=== PATIENT | female | born 1960 | race Two or more races ===

== ENCOUNTER → 2018-05-08 | Outpatient (CLI) | payer OTHER | LOC: FIMAGING 09:54 | PROVIDERS: ATTEND Physical Medicine & Rehabilitation | DX: M23.221 Derangement of posterior horn of medial meniscus due to old tear or injury, right knee (principal); M24.10 Other articular cartilage disorders, unspecified site; M71.21 Synovial cyst of popliteal space [Baker], right knee; M23.41 Loose body in knee, right knee ==

== ENCOUNTER → 2018-11-02 | Outpatient (CLI) | payer OTHER | LOC: FIMAGING 15:07 | PROVIDERS: ATTEND Internal Medicine | DX: R06.02 Shortness of breath (principal) ==

== ENCOUNTER → 2018-11-05 | Outpatient (CLI) | payer OTHER | LOC: FIMAGING 13:50 ==

== ENCOUNTER → 2018-11-08 | Outpatient (CLI) | payer OTHER | LOC: FIMAGING 13:30 | PROVIDERS: ATTEND Internal Medicine | DX: R60.0 Localized edema (principal); R79.89 Other specified abnormal findings of blood chemistry; Z98.890 Other specified postprocedural states ==

== ENCOUNTER → 2019-01-11 | Outpatient (CLI) | payer OTHER ==
[~2019-01-11] MED LIST: IOPAMIDOL (ISOVUE-300) 100 ML BTL ONE
== END ==
LOC: FIMAGING 13:01
PROVIDERS: ATTEND Internal Medicine Gastroenterology
DX: K83.8 Other specified diseases of biliary tract (principal); R93.2 Abnormal findings on diagnostic imaging of liver and biliary tract
CPT/HCPCS: Q9967

== ENCOUNTER 2019-01-17 10:10 | Day surgery (SDC) | payer OTHER ==
[2019-01-17] MEDS ORDERED: LR 1,000 ML IV ONE (10:59)
[2019-01-17] MEDS ORDERED: IOTHALAMATE MEG (CONRAY) 50 ML VIAL IV ONE (11:57)
[2019-01-17] MEDS ORDERED: MIDAZOLAM 2 MG/2 ML VIAL IVP ONE (12:03)
--- NOTE | 2019-01-17 12:04 | PDANEPAE ---
ANE Past Medical History - Cardiovascular History Hx Hypertension: Yes Hx Arrhythmias: No Hx Chest Pain: No Hx Coronary Artery / Peripheral Vascular Disease: No Hx CHF / Valvular Disease: No Hx Palpitations: No - Pulmonary History Hx COPD: No Hx Asthma/Reactive Airway Disease: No Hx Recent Upper Respiratory Infection: No Hx Oxygen in Use at Home: No Hx Sleep Apnea: No Sleep Apnea Screening Result - Last Documented: Negative - Neurologic History Hx Cerebrovascular Accident: No Hx Seizures: Yes Hx Dementia: No Neurologic History Comment: seizure at age 14 nothing since - Endocrine History Hx Diabetes: No - Renal History Hx Renal Disorders: No - Liver History Hx Hepatic Disorders: No - Neurological & Psychiatric Hx Hx Neurological and Psychiatric Disorders: Yes Neurological / Psychiatric History Comment: cervical and lumbar herniated disc. anxiety - Cancer History Hx Cancer: No - Congenital Disorder History Hx Congenital Disorders: No - GI History Hx Gastrointestinal Disorders: Yes Gastrointestinal History Comment: acid reflux - Other Health History Other Health History: dental implants permenant retainers - Chronic Pain History Chronic Pain: Yes (neck,back) - Surgical History Prior Surgeries: RTKA 10/26. HYSTERECTOMY 11 YRS AGO ANE Review of Systems Review of Systems: - Exercise capacity METS (RN): 4 METS ANE Patient History - Allergies Allergies/Adverse Reactions: prednisone Allergy (Verified 01/14/19 19:01) Other-Enter Comments - Home Medications Home Medications: Acetaminophen 01/14/19 [Last Taken 1 Day Ago ~01/16/19] Gabapentin 01/14/19 [Last Taken 1 Day Ago ~01/16/19] Irbesartan 01/14/19 [Last Taken 01/17/19] Oxycodone HCl 01/14/19 [Last Taken 01/17/19] Triamterene-Hctz 37.5-25 mg Tb 01/14/19 [Last Taken 1 Day Ago ~01/16/19] Valium 01/14/19 [Last Taken 01/17/19] Xanax 01/14/19 [Last Taken 01/17/19 10:30] Zantac 01/14/19 [Last Taken 01/17/19] - NPO status NPO Since - Liquids (Date): 01/17/19 NPO Since - Liquids (Time): 06:30 NPO Since - Solids (Date): 01/16/19 NPO Since - Solids (Time): 21:00 - Smoking Hx Smoking Status: Former smoker - Family Anes Hx Family Hx Anesthesia Complications: none ANE Labs/Vital Signs - Labs Result Diagrams: 01/17/19 11:20 - Vital Signs Blood Pressure: 135/80 Heart Rate: 88 Respiratory Rate: 18 O2 Sat (%): 95 Height: 154.94 cm Weight: 53.977 kg ANE Physical Exam - Airway Neck exam: FROM Mallampati Score: Class 2 Mouth exam: normal dental/mouth exam - Pulmonary Pulmonary: no respiratory distress - Cardiovascular Cardiovascular: regular rate and rhythym - ASA Status ASA Status: II ANE Anesthesia Plan Anesthesia Plan: general endotracheal anesthesia
[2019-01-17] MEDS ORDERED: fentaNYL 100 MCG/2 ML INJ ONE (12:08)
[2019-01-17] MEDS ORDERED: ROCURONIUM 50 MG/5 ML VIAL ONE (12:08)
[2019-01-17] MEDS ORDERED: PROPOFOL 200 MG/20 ML VIAL ONE (12:08)
[2019-01-17] MEDS ORDERED: ONDANSETRON 4 MG/2 ML VIAL ONE (12:09)
[2019-01-17] MEDS ORDERED: LIDOCAINE 2% 100 MG/5 ML SYR ONE (12:09)
[2019-01-17] MEDS ORDERED: ONDANSETRON 4 MG/2 ML VIAL IVP PRN (12:18)
[2019-01-17] MEDS ORDERED: fentaNYL 100 MCG/2 ML INJ IVP PRN (12:18)
[2019-01-17] MEDS ORDERED: NALOXONE HCL 0.4 MG/ML INJ IVP PRN (12:18)
[2019-01-17] MEDS ORDERED: ALBUTEROL 3 ML DEYVIAL IH PRN (12:18)
[2019-01-17] MEDS ORDERED: INDOMETHACIN 50 MG SUPP PR PRN (12:38)
--- NOTE | 2019-01-17 12:38 | PDGENHP ---
History & Physical Chief Complaint: abdominal pain History of Present Illness: 58 year old female presents for evaluation of epigastric apain. worse in am. Abd CT revealed CBD and PD dilation. Pertinent Past, Social, Family History: PMHx: CAD, HTN,. hypercholesterolemia. PSurGhx: hysterectomy, tonsillectomy Relevant Physical Exam: HEENT: anicteric. CV: RRR +s1s2. Lungs: CTAB. Abd: soft, nt, + bs. NO g/r Cardiorespiratory Assessment: ASA 2
[2019-01-17] MEDS ORDERED: NS 500 ML IV SCH (12:45)
[2019-01-17] MEDS ORDERED: GLYCOPYRROLATE 0.2 MG/1 ML VIAL ONE ×2 (12:52)
[2019-01-17] MEDS ORDERED: NEOSTIGMINE METHYLSULFATE 10 MG/10 ML MDV ONE (12:52)
--- NOTE | 2019-01-17 13:30 | POSTANESTH ---
Post Anesthetic Evaluation Cardiovascular Status: Similar to Pre-Op Cond Respiratory Status: Similar to Pre-op Cond. Level of Consciousness/Mental Status: Moderately Sleepy Pain Control: Adequate, Prn Tx Ordered Nausea/Vomiting Control: Adequate, Prn Tx Ordered Complications Possibly Related to Anesthesia: None Noted (sleepy pre op)
--- NOTE | 2019-01-17 13:56 | GIREPORT ---
[facility] Surgical Services - Endoscopy Department Patient Name: Concepcion Trujillo Procedure Date: 01/17/2019 12:37 PM Patient Type: Outpatient Attending MD/ ER Physician: Prince Herrera MD Procedure: Upper EUS Indications: Common bile duct dilation (etiology unknown) seen on CT scan, Dilated pancreatic duct on CT scan, Epigastric abdominal pain Patient Profile: 58 year old female presents for evaluation of epigastric pain, nausea, and abnormal imaging. Providers: Prince Herrera MD Medicines: General Anesthesia Complications: No immediate complications. Estimated blood loss: Minimal. Description of Procedure: After obtaining informed consent, the endoscope was passed under direct vision. Throughout the procedure, the patient's blood pressure, pulse, and oxygen saturations were monitored continuously. The Endosonoscope was introduced through the mouth, and advanced to the second part of duoden um. The Endoscope was introduced through the mouth, and advanced to the sec ond part of duodenum. The upper EUS was accomplished without difficulty. Th e patient tolerated the procedure well. Findings: ENDOSCOPIC FINDING: : The examined esophagus was normal. A hiatal hernia was present. Patchy mildly erythematous mucosa was found in the gastric body and in the gastric antrum. Biopsies were taken with a cold forceps for histology. The examined duodenum was normal. The ampulla was normal in appearance. ENDOSONOGRAPHIC FINDING: : There was dilation in the common bile duct which measured up to 10.6 mm . The pancreatic duct had a dilated endosonographic appearance in the pancreatic head. The pancreatic duct measured up to 4.5 mm in diameter. The CBD and PD were seen merging together. Pancreatic parenchymal abnormalities were noted in the entire pancreas. These consisted of hyperechoic foci. The pancreatic duct had a prominently branched endosonographic appearan ce and had hyperechoic mccurdy in the entire pancreas. There was no sign of significant endosonographic abnormality in the visualized portion of the liver. No masses were identified. No lymphadenopathy seen. Estimated Blood Loss: Estimated blood loss: none. Post Op Diagnosis: - Normal esophagus. - Hiatal hernia. - Erythematous mucosa in the gastric body and antrum. Biopsied. - Normal examined duodenum. Ampulla was normal. - There was dilation in the common bile duct which measured up to 10.6 mm. - The pancreatic duct had a dilated endosonographic appearance in the pancreatic head. The pancreatic duct measured up to 4.6 mm in diameter. - Pancreatic parenchymal abnormalities consisting of hyperechoic foci w ere noted in the entire pancreas. - The pancreatic duct had a prominently branched endosonographic appear ance and had hyperechoic mccurdy in the entire pancreas. - There was no evidence of significant pathology in the visualized port ion of the liver. - Etiology? No cause of dilation noted. No mass lesion noted. Ampulla n ormal in appearance. Recommendation: - Discharge patient to home (with escort). - Advance diet as tolerated. - Continue present medications. - Await path results. - Consider repeat imaging in 3 months. - Return to GI office in 4 weeks. - Thank you for allowing me to paricipate in the care of your patient. Attending Participation: I personally performed the entire procedure. Prince Herrera MD Prince Herrera MD 01/17/2019 1:55:58 PM This report has been signed electronicallyPrince Herrera MD Number of Addenda: 0 Note Initiated On: 01/17/2019 12:37 PM [email or web address]
[2019-01-17 14:52] VITALS: BP 121/72
== END 2019-01-17 15:07 | disposition home or self-care (01) ==
LOC: FSGY 10:10
PROVIDERS: ATTEND Internal Medicine Gastroenterology
PROC: 0DB68ZX Excision of Stomach, Via Natural or Artificial Opening Endoscopic, Diagnostic (ICD-10-PCS; principal; 2019-01-17 12:30)
PROC: BD49ZZZ Ultrasonography of Duodenum (ICD-10-PCS; principal; 2019-01-17 12:30)
DX: K29.50 Unspecified chronic gastritis without bleeding (principal); K44.9 Diaphragmatic hernia without obstruction or gangrene; E78.00 Pure hypercholesterolemia, unspecified; I10 Essential (primary) hypertension; I25.10 Atherosclerotic heart disease of native coronary artery without angina pectoris
CPT/HCPCS: J2001; J2250; J2405; J2704; J3010; Q9961